=== PATIENT | male | born 1960 ===

== ENCOUNTER 2025-02-06 07:04 | Day surgery (SDC) | payer OTHER ==
[2025-02-06] MEDS ORDERED: fentaNYL CITRATE 50 MCG/ML AMPUL IV PUSH ONE (10:45)
[2025-02-06] MEDS ORDERED: DIPHENHYDRAMINE HCL 50 MG/ML VIAL 1ML IV ONE (10:45)
[2025-02-06] MEDS ORDERED: MIDAZOLAM HCL 2 MG/2 ML VIAL IV ONE (10:45)
== END 2025-02-06 19:35 | disposition home or self-care (01) ==
LOC: AMB-ENDOS 07:04
PROVIDERS: ATTEND Surgery
DX: K63.5 Polyp of colon (principal)